=== PATIENT | male | born 1980 | race Hispanic/Latino ===

== ENCOUNTER 2018-12-06 09:39 | Outpatient (CLI) | payer BC ==
--- NOTE | 2018-12-06 11:20 | RAD ---
LEFT ANKLE 3 VIEWS: HISTORY: Ankle pain. FINDINGS: Joint space is well preserved. Calcaneal spurs involving the plantar fascia and Achilles tendon inse rtion are noted. IMPRESSION: Calcaneal spurs. POS: [facility]
--- NOTE | 2018-12-06 11:21 | RAD ---
LEFT FOOT 3 VIEWS: HISTORY: Foot and heel pain. FINDINGS: Minimal arthritic changes of the 1st metatarsophalangeal joint are seen. There is some tiny osteophy tic change. Calcaneal spurs of the Achilles tendon insertion and plantar fascia origin are noted. IMPRESSION: Calcaneal spurs. POS: [facility]
== END 2018-12-06 09:40 | disposition home or self-care (01) ==
LOC: BICRAD 09:39
PROVIDERS: ATTEND Physician Assistant
DX: M79.672 Pain in left foot (principal); M25.572 Pain in left ankle and joints of left foot; M77.32 Calcaneal spur, left foot; E78.2 Mixed hyperlipidemia; I10 Essential (primary) hypertension
CPT/HCPCS: 36415; 80053; 80061; 84550; 85025

== ENCOUNTER 2018-12-17 07:43 | Outpatient (CLI) | payer BC ==
--- NOTE | 2018-12-17 08:49 | ULT ---
ULTRASOUND ABDOMEN COMPLETE: DATE: 12/17/2018 HISTORY: Elevated liver enzymes in 38-year-old male FINDINGS: Gallbladder: Normal wall thickness. No evidence of pericholecystic fluid, gallstones, or sludge. 10 x 6 mm nodule in the gallbladder body lumen adherent to the nondependent portion of the gallbladder wall. Liver: Diffusely increased echogenicity, consistent with fatty liver. Common duct caliber: 5 mm. Bilateral kidneys: No hydronephrosis. Pancreas: Obscured by shadowing from bowel gas. Abdominal aorta: No aneurysm Inferior vena cava: Unremarkable where visualized. Spleen: No splenomegaly IMPRESSION: 1) Hepatic steatosis. 2) 10 mm gallbladder polyp. 3) pancreas not visualized.
== END 2018-12-17 07:44 | disposition home or self-care (01) ==
LOC: ULT 07:43
PROVIDERS: ATTEND Physician Assistant
DX: R74.8 Abnormal levels of other serum enzymes (principal); K76.0 Fatty (change of) liver, not elsewhere classified; K82.4 Cholesterolosis of gallbladder
CPT/HCPCS: 76700